=== PATIENT | female | born 1975 ===

== ENCOUNTER 2018-10-12 18:10 | Observation (INO) | payer BC ==
[2018-10-12 18:11] VITALS: BMI 41.3
[2018-10-12] MEDS ORDERED: Albuterol-Ipratrop 3 mg / 0.5 (3 ml) UD INH STA ×2 (19:45→21:04)
--- NOTE | 2018-10-12 19:51 | C.PDOC ---
History Of Present Illness 43 y/o female, with history of hypertension, diabetes, hyperlipidemia, and asthma, comes in for SOB and palpitations for the past few days. She describes the pain as sharp pain. Denies fever. Patient is due for outpatient stress test in a couple of weeks. Time Seen by Provider: 10/12/18 19:38 Chief Complaint (Nursing): Palpitations History Per: Patient History/Exam Limitations: no limitations Onset/Duration Of Symptoms: Days Current Symptoms Are (Timing): Still Present Past Medical History Reviewed: Historical Data, Nursing Documentation, Vital Signs Vital Signs: Last Vital Signs Temp 98.6 F 10/12/18 18:26 Pulse 96 H 10/12/18 18:26 Resp 20 10/12/18 18:26 BP 106/76 10/12/18 18:26 Pulse Ox 99 10/12/18 18:26 Primary Care Provider: FAMILY PROVIDER,NO - Medical History PMH: Anemia, Anxiety, Arthritis, Asthma, Bronchitis, Depression, Diabetes, HTN, Hypercholesterolemia Denies: Alzheimer's Disease, Atrial Fibrillation, Cardia Arrhythmia, CHF, Hepatitis, HIV, Migraine, Mitral Valve Prolapse, Multiple Sclerosis, Parkinson's Disease, Peripheral Edema, Pneumonia Surgical History: Back Surgery (fusion- lumbar), Cholecystectomy (2007), C- Section (x1) Denies: Pacemaker - [facility] Procedures EXCISION OF CERVICAL VERTEBRAL DISC, OPEN APPROACH (09/23/15) FUSION 2-6 C JT W INTBD FUS DEV, POST APPR P COL, OPEN (09/23/15) GAIT TRAINING/AMBULAT TREATMENT USING ASSIST EQUIPMENT (09/23/15) INJECT/INFUSE NEC (08/25/14) PSYCHIAT DRUG THERAP NEC (06/05/14) Family History: States: No Known Family Hx - Social History Hx Tobacco Use: No Hx Alcohol Use: No Hx Substance Use: No - Immunization History Hx Influenza Vaccination: Yes Review Of Systems Except As Marked, All Systems Reviewed And Found Negative. Constitutional: Negative for: Fever, Chills Cardiovascular: Positive for: Palpitations. Negative for: Chest Pain Respiratory: Positive for: Shortness of Breath. Negative for: Cough Neurological: Negative for: Weakness, Numbness Physical Exam - Physical Exam Appears: Non-toxic, No Acute Distress Skin: Warm, Dry Head: Normacephalic Eye(s): bilateral: Normal Inspection Oral Mucosa: Moist Neck: Normal ROM, Supple Chest: Symmetrical, No Tenderness Cardiovascular: Rhythm Regular, No Murmur Respiratory: No Rales, No Rhonchi, Wheezing (scattered wheeezing) Gastrointestinal/Abdominal: Soft, No Tenderness Extremity: Bilateral: Atraumatic, Normal Color And Temperature Neurological/Psych: Oriented x3, Normal Speech ED Course And Treatment - Laboratory Results Result Diagrams: 10/12/18 19:59 10/12/18 19:59 ECG: Interpreted By Me, Viewed By Me ECG Rhythm: Sinus Rhythm, PVC Rate From EC O2 Sat by Pulse Oximetry: 99 (RA) Pulse Ox Interpretation: Normal Medical Decision Making Medical Decision Making: cp ro acs, asthma PERC negative Plan: --EKG --Labs --UA --Duoneb labs neg. wheezing improving will obs to ro acs. dr frederick accepts Disposition - Disposition Disposition: HOSPITALIZED Disposition Time: 22:13 Condition: STABLE - Clinical Impression Clinical Impression: Palpitations, Asthma exacerbation, Chest pain - Scribe Statement The provider has reviewed the documentation as recorded by the Fam Padilla Provider Attestation: All medical record entries made by the Taniaibrocio were at my direction and personally dictated by me. I have reviewed the chart and agree that the record accurately reflects my personal performance of the history, physical exam, medical decision making, and the department course for this patient. I have also personally directed, reviewed, and agree with the discharge instructions and disposition. Decision To Admit - Pt Status Changed To: Hospital Disposition Of: Observation - . Bed Request Type: Telemetry Admitting Physician: Rasheeda Frederick Patient Diagnosis: Palpitations, Asthma exacerbation, Chest pain
[2018-10-12] MEDS ORDERED: Albuterol-Ipratrop 3 mg / 0.5 (3 ml) UD ONE ×2 (20:02→21:15)
[2018-10-12 20:11] LABS: BASO # 0.1 K/uL (0.0-0.2); BASO % 0.6 % (0.0-2.0); EOS # 0.1 K/uL (0.0-0.7); HEMOGLOBIN 13.5 g/dL (11.0-16.0); LYMPH # 2.3 K/uL (1.0-4.3); LYMPH % 21.6 % (20.0-40.0); MEAN CELL VOLUME 84.5 fL (81.0-99.0); MEAN CORPUSCULAR HEMOGLOBIN 28.7 pg (27.0-31.0); MEAN PLATELET VOLUME 8.1 fL (7.2-11.7); MONO # 0.9 K/uL (0.0-0.8); MONO % 8.7 % (0.0-10.0); NEUT # 7.3 K/uL (1.8-7.0); NEUT % 68.1 % (50.0-75.0); RBC 4.7 Mil/uL (3.80-5.20); RED CELL DISTRIBUTION WIDTH 14.3 % (11.5-14.5); WHITE BLOOD COUNT 10.7 K/uL (4.8-10.8)
[2018-10-12 20:19] LABS: INR 1.1; PROTHROMBIN TIME 11.5 SECONDS (9.7-12.2)
[2018-10-12 20:22] LABS: HCG,QUALITATIVE URINE NEGATIVE (NEGATIVE)
[2018-10-12 20:23] LABS: ALB/GLOB RATIO 1.1 (1.0-2.1); ALBUMIN 3.9 g/dL (3.5-5.0); ALT/SGPT 21 U/L (9-52); AST/SGOT 17 U/L (14-36); BLOOD UREA NITROGEN 13 mg/dL (7-17); CALCIUM 9.2 mg/dl (8.6-10.4); GFR NON-AFRICAN AMERICAN > 60
[2018-10-12 20:29] LABS: SQUAMOUS EPITHIAL 3 /hpf (0-5); URINE BACTERIA OCC (<OCC); URINE BILIRUBIN NEGATIVE (NEGATIVE); URINE BLOOD 1+ (NEGATIVE); URINE CLARITY Hazy (Clear); URINE COLOR Yellow (YELLOW); URINE GLUCOSE (UA) NORMAL (Normal); URINE LEUKOCYTE ESTERASE TRACE Leu/uL (Negative); URINE PROTEIN NEGATIVE (NEGATIVE)
[2018-10-12 20:31] LABS: B-TYPE NATRIURETIC PEPTIDE 79.7 pg/mL (0-450)
[2018-10-12] MEDS ORDERED: Enoxaparin 40 mg Syringe SC ONE (23:51)
[2018-10-13] MEDS: MethylPREDNISolone 40 mg Vial IV SCH ×4 (00:32→23:58)
[2018-10-13 06:26] VITALS: RESP 20
[2018-10-13 07:14] LABS: CK-MB < 0.22 ng/mL (0.0-3.38)
--- NOTE | 2018-10-13 08:08 | RAD ---
Chest x-ray single frontal view HISTORY: Chest pain. Comparison: None available. FINDINGS: No focal infiltrate or effusion. Heart size within normal limits. Impression: No focal infiltrate or effusion.
[2018-10-13] MEDS: Enoxaparin 40 mg Syringe SC SCH (09:20)
[2018-10-13] MEDS: Pantoprazole 40 mg EC Tab PO SCH (09:20)
[2018-10-13] MEDS: Azithromycin 500 MG in Sodium Chloride 0.9% 250 ML IVPB SCH (09:29)
--- NOTE | 2018-10-13 11:04 | CP.PCM.CON ---
History of Present Illness - History of Present Illness History of Present Illness: CHART REVIEWED. PT SEEN AND EXAMINED, COVERING DR Quincy MENDOZA 43 YO FEMALE WITH A HX ASTHMA, HTN, DM, OBESITY, DEPRESSION, ADM WITH INCREASED MOD SOB WITH MIN EXERTION X FEW WKS, NO COUGH. NO RELIEF WITH INHALERS, RECENT PRED TAPER. NO PREVIOUS ADM FOR ASTHMA. NO FEVER. ++PALPITATIONS X FEW DAYS AND ANT CP. Review of Systems - Review of Systems All systems: reviewed and no additional remarkable complaints except - Constitutional Constitutional: absent: Chills, Daytime Sleepiness, Fever - EENT Eyes: absent: Change in Vision Ears: absent: Decreased Hearing Nose/Mouth/Throat: absent: Post Nasal Drip - Cardiovascular Cardiovascular: Chest Pain, Palpitations - Respiratory Respiratory: Dyspnea, Dyspnea on Exertion. absent: Cough, Excessive Mucous Production - Gastrointestinal Gastrointestinal: absent: Nausea, Vomiting - Genitourinary Genitourinary: absent: Difficulty Urinating - Musculoskeletal Musculoskeletal: Back Pain - Integumentary Integumentary: absent: Rash, Swelling - Neurological Neurological: absent: Confusion, Focal Weakness - Psychiatric Psychiatric: Depression - Endocrine Endocrine: absent: Change in Body Appearance - Hematologic/Lymphatic Hematologic: absent: Lymphadenopathy Past Patient History - Infectious Disease Hx of Infectious Diseases: None - Past Medical History & Family History Past Medical History?: Yes Pertinent Family History: +ASTHMA - Past Social History Smoking Status: Never Smoked Alcohol: None Drugs: Denies - CARDIAC Hx Atrial Fibrillation: No Hx Cardia Arrhythmia: No Hx Congestive Heart Failure: No Hx Hypercholesterolemia: Yes Hx Hypertension: Yes Hx Mitral Valve Prolapse: No Hx Pacemaker: No Hx Peripheral Edema: No - PULMONARY Hx Asthma: Yes Hx Bronchitis: Yes Hx Pneumonia: No Hx Sleep Apnea: No - NEUROLOGICAL Hx Alzheimer's Disease: No Hx Migraine: No Hx Multiple Sclerosis: No Hx Parkinson's Disease: No - HEENT Hx HEENT Problems: No - RENAL Hx Chronic Kidney Disease: No - ENDOCRINE/METABOLIC Hx Endocrine Disorders: Yes (DM) Hx Diabetes Mellitus Type 2: Yes - HEMATOLOGICAL/ONCOLOGICAL Hx Anemia: Yes Hx Human Immunodeficiency Virus (HIV): No - INTEGUMENTARY Hx Dermatological Problems: No - MUSCULOSKELETAL/RHEUMATOLOGICAL Hx Arthritis: Yes Hx Back Pain: Yes - GASTROINTESTINAL Hx Gastrointestinal Disorders: No - GENITOURINARY/GYNECOLOGICAL Hx Genitourinary Disorders: No - PSYCHIATRIC Hx Anxiety: Yes Hx Depression: Yes Hx Substance Use: No - SURGICAL HISTORY Hx Surgeries: Yes Hx Cholecystectomy: Yes (2007) - ANESTHESIA Hx Anesthesia: Yes Hx Anesthesia Reactions: No Hx Malignant Hyperthermia: No Meds Allergies/Adverse Reactions: Allergies Allergy/AdvReac Type Severity Reaction Status Date / Time seasonal Allergy NAUSEA Uncoded 08/14/18 20:47 - Medications Medications: Current Medications Albuterol/Ipratropium (Duoneb 3 Mg/0.5 Mg (3 Ml) Ud) 3 ml INH RQ6 PRN PRN Reason: Shortness of Breath Aspirin (Aspirin Chewable) 81 mg PO DAILY [facility] Last Admin: 10/13/18 09:20 Dose: 81 mg Enoxaparin Sodium (Lovenox) 40 mg SC DAILY [facility] Last Admin: 10/13/18 09:20 Dose: 40 mg Azithromycin 500 mg/ Sodium (Chloride) 250 mls @ 250 mls/hr IVPB DAILY [facility]; Protocol Last Admin: 10/13/18 09:29 Dose: 250 mls/hr Metformin HCl (Glucophage) 500 mg PO ACTID [facility] Last Admin: 10/13/18 08:30 Dose: 500 mg Methylprednisolone (Solu-Medrol) 40 mg IV Q8H [facility] Last Admin: 10/13/18 09:00 Dose: 40 mg Pantoprazole Sodium (Protonix Ec Tab) 40 mg PO DAILY [facility] Last Admin: 10/13/18 09:20 Dose: 40 mg Physical Exam - Constitutional Appears: No Acute Distress - Head Exam Head Exam: ATRAUMATIC, NORMOCEPHALIC - Eye Exam Eye Exam: EOMI, Normal appearance - ENT Exam ENT Exam: Mucous Membranes Moist - Neck Exam Neck exam: Positive for: Normal Inspection - Respiratory Exam Respiratory Exam: Decreased Breath Sounds, Prolonged Expiratory Phase. absent: Accessory Muscle Use, Wheezes - Cardiovascular Exam Cardiovascular Exam: RRR, +S1, +S2 - GI/Abdominal Exam GI & Abdominal Exam: Soft. absent: Tenderness Additional comments: OBESE - Rectal Exam Rectal Exam: Deferred - Extremities Exam Extremities exam: Negative for: calf tenderness, pedal edema - Back Exam Back exam: absent: CVA tenderness (L), CVA tenderness (R) - Neurological Exam Neurological exam: Alert, CN II-XII Intact, Oriented x3 - Psychiatric Exam Psychiatric exam: Normal Mood Results - Vital Signs Recent Vital Signs: Last Vital Signs Temp 97.8 F 10/13/18 07:00 Pulse 78 10/13/18 07:07 Resp 20 10/13/18 07:00 BP 107/72 10/13/18 07:00 Pulse Ox 97 10/13/18 07:00 - Labs Result Diagrams: 10/14/18 08:52 10/14/18 08:52 Labs: Laboratory Results - last 24 hr 10/12/18 10/12/18 10/12/18 19:59 19:59 19:59 WBC 10.7 RBC 4.70 Hgb 13.5 D Hct 39.7 MCV 84.5 D MCH 28.7 MCHC 34.0 RDW 14.3 Plt Count 306 MPV 8.1 Neut % (Auto) 68.1 Lymph % (Auto) 21.6 [place] % (Auto) 8.7 Eos % (Auto) 1.0 Baso % (Auto) 0.6 Neut # (Auto) 7.3 H Lymph # (Auto) 2.3 [place] # (Auto) 0.9 H Eos # (Auto) 0.1 Baso # (Auto) 0.1 PT 11.5 INR 1.1 APTT 35.0 H Sodium 137 Potassium 3.8 Chloride 102 Carbon Dioxide 25 Anion Gap 14 BUN 13 Creatinine 0.7 Est GFR ( Amer) > 60 Est GFR (Non-Af Amer) > 60 POC Glucose (mg/dL) Random Glucose 118 H D Calcium 9.2 Total Bilirubin 0.3 AST 17 ALT 21 Alkaline Phosphatase 99 Total Creatine Kinase CK-MB (Mass) Troponin I < 0.0120 NT-Pro-B Natriuret Pep 79.7 Total Protein 7.5 Albumin 3.9 Globulin 3.6 Albumin/Globulin Ratio 1.1 Urine Color Urine Clarity Urine pH Ur Specific [place] Urine Protein Urine Glucose (UA) Urine Ketones Urine Blood Urine Nitrate Urine Bilirubin Urine Urobilinogen Ur Leukocyte Esterase Urine WBC (Auto) Urine RBC (Auto) Ur Squamous Epith Cells Urine Bacteria Urine HCG, Qual 10/12/18 10/13/18 10/13/18 20:13 06:34 06:38 WBC RBC Hgb Hct MCV MCH MCHC RDW Plt Count MPV Neut % (Auto) Lymph % (Auto) [place] % (Auto) Eos % (Auto) Baso % (Auto) Neut # (Auto) Lymph # (Auto) [place] # (Auto) Eos # (Auto) Baso # (Auto) PT INR APTT Sodium Potassium Chloride Carbon Dioxide Anion Gap BUN Creatinine Est GFR ( Amer) Est GFR (Non-Af Amer) POC Glucose (mg/dL) 248 H Random Glucose Calcium Total Bilirubin AST ALT Alkaline Phosphatase Total Creatine Kinase 29 L CK-MB (Mass) < 0.22 Troponin I < 0.0120 NT-Pro-B Natriuret Pep Total Protein Albumin Globulin Albumin/Globulin Ratio Urine Color Yellow Urine Clarity Hazy Urine pH 5.0 Ur Specific [place] 1.021 Urine Protein Negative Urine Glucose (UA) Normal Urine Ketones Negative Urine Blood 1+ H Urine Nitrate Negative Urine Bilirubin Negative Urine Urobilinogen 4.0 H Ur Leukocyte Esterase Trace Urine WBC (Auto) 2 Urine RBC (Auto) 11 H Ur Squamous Epith Cells 3 Urine Bacteria Occ H Urine HCG, Qual Negative Assessment & Plan (1) Obesity Status: Acute (2) Asthma exacerbation Status: Acute (3) Atypical chest pain Status: Acute (4) Depression Status: Acute (5) Diabetes Status: Acute (6) Dyslipidemia Status: Acute (7) HTN (hypertension) Status: Acute - Assessment and Plan (Free Text) Assessment: 43 YO FEMALE WITH A HX MULT MED PROBS ADM WITH DYSPNEA AND CP R/O ACS., EXAC ASTHMA. CONT IV STEROIDS, TAPER TOLERATED. CONT NEB BD., SYMBICORT. MONITOR O2 SAT., ON ROOM AIR NOW. CXR REVIEWED. GI/DVT PROPHYLAXIS. FOR CARDIO EVAL. DISCUSSED WITH STAFF AT LENGTH. TIME SPENT 1HR.
--- NOTE | 2018-10-13 12:05 | CP.PCM.CON ---
History of Present Illness - History of Present Illness History of Present Illness: 43 y/o female, with history of hypertension, diabetes, hyperlipidemia, and asthma, comes in for SOB and palpitations for the past few days. She describes the pain as sharp pain. Denies fever. Patient is due for outpatient stress test in a couple of weeks. chronic problems: HTN stable DM stable LIPIDS not on statin CArdiac history: > > patient had echo in 02/2017 suggesting EF of 35-40%, f/u stress test same admission showed normal perfusion and EF visually noted as normal. Past Patient History - Infectious Disease Hx of Infectious Diseases: None - Past Medical History & Family History Past Medical History?: Yes - Past Social History Smoking Status: Never Smoked Alcohol: None Drugs: Denies - CARDIAC Hx Atrial Fibrillation: No Hx Cardia Arrhythmia: No Hx Congestive Heart Failure: No Hx Hypercholesterolemia: Yes Hx Hypertension: Yes Hx Mitral Valve Prolapse: No Hx Pacemaker: No Hx Peripheral Edema: No - PULMONARY Hx Asthma: Yes Hx Bronchitis: Yes Hx Pneumonia: No Hx Sleep Apnea: No - NEUROLOGICAL Hx Alzheimer's Disease: No Hx Migraine: No Hx Multiple Sclerosis: No Hx Parkinson's Disease: No - HEENT Hx HEENT Problems: No - RENAL Hx Chronic Kidney Disease: No - ENDOCRINE/METABOLIC Hx Endocrine Disorders: Yes (DM) Hx Diabetes Mellitus Type 2: Yes - HEMATOLOGICAL/ONCOLOGICAL Hx Anemia: Yes Hx Human Immunodeficiency Virus (HIV): No - INTEGUMENTARY Hx Dermatological Problems: No - MUSCULOSKELETAL/RHEUMATOLOGICAL Hx Arthritis: Yes Hx Back Pain: Yes - GASTROINTESTINAL Hx Gastrointestinal Disorders: No - GENITOURINARY/GYNECOLOGICAL Hx Genitourinary Disorders: No - PSYCHIATRIC Hx Anxiety: Yes Hx Depression: Yes Hx Substance Use: No - SURGICAL HISTORY Hx Surgeries: Yes Hx Cholecystectomy: Yes (2007) - ANESTHESIA Hx Anesthesia: Yes Hx Anesthesia Reactions: No Hx Malignant Hyperthermia: No Meds Allergies/Adverse Reactions: Allergies Allergy/AdvReac Type Severity Reaction Status Date / Time seasonal Allergy NAUSEA Uncoded 08/14/18 20:47 - Medications Medications: Current Medications Albuterol/Ipratropium (Duoneb 3 Mg/0.5 Mg (3 Ml) Ud) 3 ml INH RQ6 PRN PRN Reason: Shortness of Breath Aspirin (Aspirin Chewable) 81 mg PO DAILY [facility] Last Admin: 10/13/18 09:20 Dose: 81 mg Enoxaparin Sodium (Lovenox) 40 mg SC DAILY [facility]S [facility] Last Admin: 10/13/18 09:20 Dose: 40 mg Azithromycin 500 mg/ Sodium (Chloride) 250 mls @ 250 mls/hr IVPB DAILY [facility]S [facility]; Protocol Last Admin: 10/13/18 09:29 Dose: 250 mls/hr Metformin HCl (Glucophage) 500 mg PO ACTID [facility] 234 B[facility]S AT [facility] Last Admin: 10/13/18 08:30 Dose: 500 mg Methylprednisolone (Solu-Medrol) 40 mg IV Q8H [facility] 234 B[facility]S AT [facility] Last Admin: 10/13/18 09:00 Dose: 40 mg Pantoprazole Sodium (Protonix Ec Tab) 40 mg PO DAILY [facility] 234 [facility]S [facility] Last Admin: 10/13/18 09:20 Dose: 40 mg Physical Exam - Constitutional Appears: No Acute Distress - Head Exam Head Exam: ATRAUMATIC, NORMAL INSPECTION, NORMOCEPHALIC - Eye Exam Eye Exam: EOMI, Normal appearance - ENT Exam ENT Exam: Mucous Membranes Moist, Normal Oropharynx - Neck Exam Neck exam: Positive for: Normal Inspection - Respiratory Exam Respiratory Exam: Clear to Auscultation Bilateral, NORMAL BREATHING PATTERN - Cardiovascular Exam Cardiovascular Exam: REGULAR RHYTHM, +S1, +S2 - GI/Abdominal Exam GI & Abdominal Exam: Normal Bowel Sounds, Soft - Extremities Exam Extremities exam: Positive for: normal inspection - Back Exam Back exam: NORMAL INSPECTION - Neurological Exam Neurological exam: Alert, CN II-XII Intact, Oriented x3 - Psychiatric Exam Psychiatric exam: Normal Affect, Normal Mood - Skin Skin Exam: Normal Color, Warm Results - Vital Signs Recent Vital Signs: Last Vital Signs Temp 97.8 F 10/13/18 07:00 Pulse 78 10/13/18 07:07 Resp 20 10/13/18 07:00 BP 107/72 10/13/18 07:00 Pulse Ox 97 10/13/18 07:00 - Labs Result Diagrams: 10/15/18 11:15 10/15/18 11:15 Labs: Laboratory Results - last 24 hr 10/12/18 10/12/18 10/12/18 19:59 19:59 19:59 WBC 10.7 RBC 4.70 Hgb 13.5 D Hct 39.7 MCV 84.5 D MCH 28.7 MCHC 34.0 RDW 14.3 Plt Count 306 MPV 8.1 Neut % (Auto) 68.1 Lymph % (Auto) 21.6 [place] % (Auto) 8.7 Eos % (Auto) 1.0 Baso % (Auto) 0.6 Neut # (Auto) 7.3 H Lymph # (Auto) 2.3 [place] # (Auto) 0.9 H Eos # (Auto) 0.1 Baso # (Auto) 0.1 PT 11.5 INR 1.1 APTT 35.0 H Sodium 137 Potassium 3.8 Chloride 102 Carbon Dioxide 25 Anion Gap 14 BUN 13 Creatinine 0.7 Est GFR ( Amer) > 60 Est GFR (Non-Af Amer) > 60 POC Glucose (mg/dL) Random Glucose 118 H D Calcium 9.2 Total Bilirubin 0.3 AST 17 ALT 21 Alkaline Phosphatase 99 Total Creatine Kinase CK-MB (Mass) Troponin I < 0.0120 NT-Pro-B Natriuret Pep 79.7 Total Protein 7.5 Albumin 3.9 Globulin 3.6 Albumin/Globulin Ratio 1.1 Urine Color Urine Clarity Urine pH Ur Specific [place] Urine Protein Urine Glucose (UA) Urine Ketones Urine Blood Urine Nitrate Urine Bilirubin Urine Urobilinogen Ur Leukocyte Esterase Urine WBC (Auto) Urine RBC (Auto) Ur Squamous Epith Cells Urine Bacteria Urine HCG, Qual 10/12/18 10/13/18 10/13/18 20:13 06:34 06:38 WBC RBC Hgb Hct MCV MCH MCHC RDW Plt Count MPV Neut % (Auto) Lymph % (Auto) [place] % (Auto) Eos % (Auto) Baso % (Auto) Neut # (Auto) Lymph # (Auto) [place] # (Auto) Eos # (Auto) Baso # (Auto) PT INR APTT Sodium Potassium Chloride Carbon Dioxide Anion Gap BUN Creatinine Est GFR ( Amer) Est GFR (Non-Af Amer) POC Glucose (mg/dL) 248 H Random Glucose Calcium Total Bilirubin AST ALT Alkaline Phosphatase Total Creatine Kinase 29 L CK-MB (Mass) < 0.22 Troponin I < 0.0120 NT-Pro-B Natriuret Pep Total Protein Albumin Globulin Albumin/Globulin Ratio Urine Color Yellow Urine Clarity Hazy Urine pH 5.0 Ur Specific [place] 1.021 Urine Protein Negative Urine Glucose (UA) Normal Urine Ketones Negative Urine Blood 1+ H Urine Nitrate Negative Urine Bilirubin Negative Urine Urobilinogen 4.0 H Ur Leukocyte Esterase Trace Urine WBC (Auto) 2 Urine RBC (Auto) 11 H Ur Squamous Epith Cells 3 Urine Bacteria Occ H Urine HCG, Qual Negative 10/13/18 11:04 WBC RBC Hgb Hct MCV MCH MCHC RDW Plt Count MPV Neut % (Auto) Lymph % (Auto) [place] % (Auto) Eos % (Auto) Baso % (Auto) Neut # (Auto) Lymph # (Auto) [place] # (Auto) Eos # (Auto) Baso # (Auto) PT INR APTT Sodium Potassium Chloride Carbon Dioxide Anion Gap BUN Creatinine Est GFR ( Amer) Est GFR (Non-Af Amer) POC Glucose (mg/dL) 185 H Random Glucose Calcium Total Bilirubin AST ALT Alkaline Phosphatase Total Creatine Kinase CK-MB (Mass) Troponin I NT-Pro-B Natriuret Pep Total Protein Albumin Globulin Albumin/Globulin Ratio Urine Color Urine Clarity Urine pH Ur Specific [place] Urine Protein Urine Glucose (UA) Urine Ketones Urine Blood Urine Nitrate Urine Bilirubin Urine Urobilinogen Ur Leukocyte Esterase Urine WBC (Auto) Urine RBC (Auto) Ur Squamous Epith Cells Urine Bacteria Urine HCG, Qual - EKG Data EKG Interpreted by: Myself (NSR, isolated PVCs) EKG shows normal: Sinus rhythm - Imaging and Cardiology Chest x-ray Status: Image reviewed by me (No infiltrate) Assessment & Plan - Assessment and Plan (Free Text) Assessment: 43 y/o with acute asthma non cardiac CP now resolved No high risk findings on EKG , [place] ruled out Patient has a financial auditor in [place]: I have asked her to f/u with him to re- eval sx;s and consider repeat echo and possible event recorder. Majority of sxs of palpitation appear to be due to physical deconditioning. advise weight loss, exercise and cont Rx for asthma BP is olga; ..monitor for now f/u lipids as outpatient and consider statin if LDL >130 ok to d/c from cardiac...when pulm sxs improved and stable...f/u with her financial auditor as outpatient.
[2018-10-13 12:44] LABS: CK-MB < 0.22 ng/mL (0.0-3.38)
[2018-10-13] MEDS: Albuterol-Ipratrop 3 mg / 0.5 (3 ml) UD INH PRN ×2 (14:32→20:03)
[2018-10-13 20:18] LABS: CK-MB < 0.22 ng/mL (0.0-3.38)
[2018-10-14] MEDS: MethylPREDNISolone 40 mg Vial IV SCH ×2 (09:00→14:12)
[2018-10-14 09:04] LABS: BASO % 0.1 % (0.0-2.0); HEMOGLOBIN 13.1 g/dL (11.0-16.0); LYMPH # 0.9 K/uL (1.0-4.3); LYMPH % 5.7 % (20.0-40.0); MEAN CELL VOLUME 85.9 fL (81.0-99.0); MEAN CORPUSCULAR HEMOGLOBIN 29.2 pg (27.0-31.0); MEAN PLATELET VOLUME 8.1 fL (7.2-11.7); MONO # 0.6 K/uL (0.0-0.8); MONO % 3.6 % (0.0-10.0); NEUT # 13.9 K/uL (1.8-7.0); NEUT % 90.6 % (50.0-75.0); PLATELET COUNT 332 K/uL (130-400); RBC 4.49 Mil/uL (3.80-5.20); RED CELL DISTRIBUTION WIDTH 14.8 % (11.5-14.5); WHITE BLOOD COUNT 15.4 K/uL (4.8-10.8)
[2018-10-14] MEDS: Pantoprazole 40 mg EC Tab PO SCH (09:09)
[2018-10-14] MEDS: Enoxaparin 40 mg Syringe SC SCH (09:10)
[2018-10-14 09:50] LABS: ALB/GLOB RATIO 1.1 (1.0-2.1); ALT/SGPT 14 U/L (9-52); AST/SGOT 16 U/L (14-36); BLOOD UREA NITROGEN 13 mg/dL (7-17); CALCIUM 9.3 mg/dl (8.6-10.4); GFR NON-AFRICAN AMERICAN > 60
[2018-10-14] MEDS: Azithromycin 500 MG in Sodium Chloride 0.9% 250 ML IVPB SCH (10:01)
[2018-10-14 11:27] LABS: LYMPHOCYTE 7 % (20-40); MONOCYTE 2 % (0-10); NEUTROPHIL 91 % (50-75); PLATELET ESTIMATE NORMAL (NORMAL); TOTAL CELLS COUNTED 100
--- NOTE | 2018-10-14 13:21 | CP.PCM.PN ---
Subjective - Date & Time of Evaluation Date of Evaluation: 10/14/18 Time of Evaluation: 13:18 - Subjective Subjective: PT ALERT, FEELS BETTER. SOB LAST PM WITH ANXIETY, BETTER WITH ZOLOFT. NO COUGH. AMBULATING . ROS; OTHERWISE NEG. Objective - Vital Signs/Intake and Output Vital Signs (last 24 hours): Temp Pulse Resp BP Pulse Ox 97.9 F 91 H 20 108/66 95 10/14/18 07:52 10/14/18 11:59 10/14/18 07:52 10/14/18 07:52 10/14/18 07:52 Intake and Output: 10/14/18 10/14/18 06:59 18:59 Intake Total 500 Balance 500 - Medications Medications: Current Medications Albuterol/Ipratropium (Duoneb 3 Mg/0.5 Mg (3 Ml) Ud) 3 ml INH RQ6 PRN PRN Reason: Shortness of Breath Last Admin: 10/13/18 20:03 Dose: 3 ml Aspirin (Aspirin Chewable) 81 mg PO DAILY [facility] Last Admin: 10/14/18 09:10 Dose: 81 mg Enoxaparin Sodium (Lovenox) 40 mg SC DAILY [facility] Last Admin: 10/14/18 09:10 Dose: 40 mg Azithromycin 500 mg/ Sodium (Chloride) 250 mls @ 250 mls/hr IVPB DAILY [facility]; Protocol Last Admin: 10/14/18 10:01 Dose: 250 mls/hr Metformin HCl (Glucophage) 500 mg PO ACTID [facility] Last Admin: 10/14/18 12:30 Dose: 500 mg Methylprednisolone (Solu-Medrol) 40 mg IV Q8H [facility] Last Admin: 10/14/18 09:00 Dose: 40 mg Pantoprazole Sodium (Protonix Ec Tab) 40 mg PO DAILY [facility] Last Admin: 10/14/18 09:09 Dose: 40 mg - Labs Labs: 10/14/18 08:52 10/14/18 08:52 PT 11.5 SECONDS (9.7-12.2) 10/12/18 19:59 INR 1.1 10/12/18 19:59 APTT 35.0 SECONDS (21-34) H 10/12/18 19:59 - Constitutional Appears: No Acute Distress - Head Exam Head Exam: ATRAUMATIC, NORMOCEPHALIC - Eye Exam Eye Exam: EOMI, Normal appearance - ENT Exam ENT Exam: Mucous Membranes Moist - Neck Exam Neck Exam: Normal Inspection - Respiratory Exam Respiratory Exam: absent: Wheezes, Respiratory Distress - Cardiovascular Exam Cardiovascular Exam: RRR, +S1, +S2 - GI/Abdominal Exam GI & Abdominal Exam: Soft. absent: Tenderness Additional comments: OBESE - Rectal Exam Rectal Exam: Deferred - Extremities Exam Extremities Exam: absent: Calf Tenderness, Pedal Edema - Back Exam Back Exam: absent: CVA tenderness (L), CVA tenderness (R) - Neurological Exam Neurological Exam: Alert, Awake, CN II-XII Intact, Normal Gait, Oriented x3 - Psychiatric Exam Psychiatric exam: Normal Mood - Skin Skin Exam: absent: Rash Assessment and Plan (1) Obesity Status: Acute (2) Asthma exacerbation Status: Acute (3) Atypical chest pain Status: Acute (4) Depression Status: Acute (5) Diabetes Status: Acute (6) Dyslipidemia Status: Acute (7) HTN (hypertension) Status: Acute - Assessment and Plan (Free Text) Assessment: RESP STATUS IMPROVING., CONT NEB BD., SYMBICORT. STEROID TAPER TOLERATED. CXR REVIEWED. CARDIO EVAL NOTED. DISCUSSED WITH STAFF AT LENGTH. TIME SPENT 40 MIN.
[2018-10-15] MEDS: MethylPREDNISolone 40 mg Vial IV SCH ×2 (02:01→12:45)
[2018-10-15 07:43] VITALS: BP 113/76; TEMP 98.1; O2SAT 95
--- NOTE | 2018-10-15 08:30 | CP.PCM.PN ---
Subjective - Date & Time of Evaluation Date of Evaluation: 10/15/18 Time of Evaluation: 08:29 - Subjective Subjective: Medicine Progress Note - Dr Quincy Diaz's service Patient seen and examined at bedside. Per nursing no acute events overnight. Patient is doing well, offers no complaints at this time. She intially came to the hospital for shortness of breath and palpitations. She states that both have since resolved. Denies headaches, dizziness, cp, palpitations, sob, cough, abdominal pain, urinary symptoms. Last bowel movement was 2 days ago. Objective - Vital Signs/Intake and Output Vital Signs (last 24 hours): Temp Pulse Resp BP Pulse Ox 98.1 F 74 20 113/76 95 10/15/18 07:42 10/15/18 07:42 10/15/18 07:42 10/15/18 07:42 10/15/18 07:42 Intake and Output: 10/15/18 10/15/18 06:59 18:59 Intake Total 500 Balance 500 - Medications Medications: Current Medications Albuterol/Ipratropium (Duoneb 3 Mg/0.5 Mg (3 Ml) Ud) 3 ml INH RQ6 PRN PRN Reason: Shortness of Breath Last Admin: 10/13/18 20:03 Dose: 3 ml Aspirin (Aspirin Chewable) 81 mg PO DAILY [facility] Last Admin: 10/14/18 09:10 Dose: 81 mg Enoxaparin Sodium (Lovenox) 40 mg SC DAILY [facility] Last Admin: 10/14/18 09:10 Dose: 40 mg Azithromycin 500 mg/ Sodium (Chloride) 250 mls @ 250 mls/hr IVPB DAILY [facility]; Protocol Last Admin: 10/14/18 10:01 Dose: 250 mls/hr Metformin HCl (Glucophage) 500 mg PO ACTID [facility] Last Admin: 10/14/18 17:13 Dose: 500 mg Methylprednisolone (Solu-Medrol) 30 mg IV Q12H [facility] Last Admin: 10/15/18 02:01 Dose: 30 mg Pantoprazole Sodium (Protonix Ec Tab) 40 mg PO DAILY [facility] Last Admin: 10/14/18 09:09 Dose: 40 mg Sertraline HCl (Zoloft) 100 mg PO HS [facility] Last Admin: 10/14/18 21:42 Dose: 100 mg Sertraline HCl (Zoloft) 25 mg PO HS [facility] Last Admin: 10/14/18 21:42 Dose: 25 mg - Labs Labs: 10/14/18 08:52 10/14/18 08:52 PT 11.5 SECONDS (9.7-12.2) 10/12/18 19:59 INR 1.1 10/12/18 19:59 APTT 35.0 SECONDS (21-34) H 10/12/18 19:59 - Constitutional Appears: Non-toxic, No Acute Distress - Head Exam Head Exam: ATRAUMATIC, NORMAL INSPECTION - Eye Exam Eye Exam: EOMI, Normal appearance - ENT Exam ENT Exam: Mucous Membranes Moist - Neck Exam Neck Exam: Full ROM - Respiratory Exam Respiratory Exam: Clear to Ausculation Bilateral, NORMAL BREATHING PATTERN. absent: Rales, Rhonchi, Wheezes - Cardiovascular Exam Cardiovascular Exam: REGULAR RHYTHM, +S1, +S2 - GI/Abdominal Exam GI & Abdominal Exam: Soft. absent: Guarding, Rigid, Tenderness - Extremities Exam Extremities Exam: Normal Inspection. absent: Calf Tenderness - Neurological Exam Neurological Exam: Alert, Awake, Oriented x3 - Psychiatric Exam Psychiatric exam: Normal Affect, Normal Mood - Skin Skin Exam: Dry, Normal Color, Warm Assessment and Plan - Assessment and Plan (Free Text) Assessment: Acute asthma exacerbation -Stable, afebrile -Patient is oxygenating well -On Solumedrol 30md Q12H -> we will change to PO prednisone -Duonebs Q6H prn shortness of breath -Pulmonology on consult, Dr Santos, help appreciated Leukocytosis -WBC 15.4 yesterday, likely 2/2 to steroids -F/U repeat CBC today to monitor Depression -Zoloft 125mg PO daily Diabetes Mellitus -On Metformin 500mg PO TID -Accuchecks 190-200s -Continue to monitor as patient is on steroids GI/DVT ppx: Protonix 40mg PO daily Lovenox 40mg SC daily DISPO: Leukocytosis downtrending. Patient to be discharged home with prednisone and zpak. 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 Patient to also follow up with her PMD outpatient. Plan discussed with Dr Quincy Maddox DO PGY-2
[2018-10-15] MEDS: Azithromycin 500 MG in Sodium Chloride 0.9% 250 ML IVPB SCH (09:12)
[2018-10-15] MEDS: Enoxaparin 40 mg Syringe SC SCH (09:12)
--- NOTE | 2018-10-15 09:17 | CP.PCM.PN ---
Subjective - Date & Time of Evaluation Date of Evaluation: 10/15/18 Time of Evaluation: 09:14 - Subjective Subjective: PT ALERT, OOB, FEELS BETTER., NO SOB LAST NIGHT. ROS ; OTHERWISE NEG. Objective - Vital Signs/Intake and Output Vital Signs (last 24 hours): Temp Pulse Resp BP Pulse Ox 98.1 F 74 20 113/76 95 10/15/18 07:42 10/15/18 07:42 10/15/18 07:42 10/15/18 07:42 10/15/18 07:42 Intake and Output: 10/15/18 10/15/18 06:59 18:59 Intake Total 500 Balance 500 - Medications Medications: Current Medications Albuterol/Ipratropium (Duoneb 3 Mg/0.5 Mg (3 Ml) Ud) 3 ml INH RQ6 PRN PRN Reason: Shortness of Breath Last Admin: 10/13/18 20:03 Dose: 3 ml Aspirin (Aspirin Chewable) 81 mg PO DAILY [facility] [place] Last Admin: 10/14/18 09:10 Dose: 81 mg Enoxaparin Sodium (Lovenox) 40 mg SC DAILY [facility] [place] Last Admin: 10/15/18 09:12 Dose: Not Given Azithromycin 500 mg/ Sodium (Chloride) 250 mls @ 250 mls/hr IVPB DAILY [facility] [place]; Protocol Last Admin: 10/15/18 09:12 Dose: 250 mls/hr Metformin HCl (Glucophage) 500 mg PO ACTID [facility] [place] Last Admin: 10/15/18 08:30 Dose: 500 mg Methylprednisolone (Solu-Medrol) 30 mg IV Q12H [facility] Last Admin: 10/15/18 02:01 Dose: 30 mg Pantoprazole Sodium (Protonix Ec Tab) 40 mg PO DAILY [facility] Last Admin: 10/14/18 09:09 Dose: 40 mg Sertraline HCl (Zoloft) 100 mg PO HS [facility] Last Admin: 10/14/18 21:42 Dose: 100 mg Sertraline HCl (Zoloft) 25 mg PO HS [facility] [place] Last Admin: 10/14/18 21:42 Dose: 25 mg - Labs Labs: 10/14/18 08:52 10/14/18 08:52 PT 11.5 SECONDS (9.7-12.2) 10/12/18 19:59 INR 1.1 10/12/18 19:59 APTT 35.0 SECONDS (21-34) H 10/12/18 19:59 - Constitutional Appears: No Acute Distress - Head Exam Head Exam: ATRAUMATIC, NORMOCEPHALIC - Eye Exam Eye Exam: EOMI, Normal appearance - ENT Exam ENT Exam: Mucous Membranes Moist - Neck Exam Neck Exam: Normal Inspection - Respiratory Exam Respiratory Exam: absent: Wheezes, Respiratory Distress - Cardiovascular Exam Cardiovascular Exam: RRR, +S1, +S2 - GI/Abdominal Exam GI & Abdominal Exam: Soft. absent: Tenderness Additional comments: OBESE - Rectal Exam Rectal Exam: Deferred - Extremities Exam Extremities Exam: absent: Calf Tenderness, Pedal Edema - Back Exam Back Exam: absent: CVA tenderness (L), CVA tenderness (R) - Neurological Exam Neurological Exam: Alert, Awake, CN II-XII Intact, Normal Gait, Oriented x3 - Psychiatric Exam Psychiatric exam: Normal Mood - Skin Skin Exam: absent: Rash Assessment and Plan (1) Obesity Status: Acute (2) Asthma exacerbation Status: Acute (3) Atypical chest pain Status: Acute (4) Depression Status: Acute (5) Diabetes Status: Acute (6) Dyslipidemia Status: Acute (7) HTN (hypertension) Status: Acute - Assessment and Plan (Free Text) Assessment: RESP STATUS IMPROVING., TOLERATING STEROID TAPER, CHANGE PO PRED. CONT SYMBICORT, PRN NEB BD., CXR REVIEWED. ADEQ OXYGENATION. DISCUSSED WITH STAFF AT LENGTH. TIME SPENT 40 MIN.
[2018-10-15] MEDS: Pantoprazole 40 mg EC Tab PO SCH (09:18)
[2018-10-15 11:31] LABS: BASO % 0.1 % (0.0-2.0); HEMOGLOBIN 13.3 g/dL (11.0-16.0); LYMPH # 1.3 K/uL (1.0-4.3); LYMPH % 9.9 % (20.0-40.0); MEAN CELL VOLUME 85.2 fL (81.0-99.0); MEAN CORPUSCULAR HEMOGLOBIN 29.1 pg (27.0-31.0); MEAN CORPUSCULAR HGB CONC 34.1 g/dL (33.0-37.0); MEAN PLATELET VOLUME 8.1 fL (7.2-11.7); MONO # 0.5 K/uL (0.0-0.8); MONO % 3.4 % (0.0-10.0); NEUT # 11.8 K/uL (1.8-7.0); NEUT % 86.6 % (50.0-75.0); PLATELET COUNT 349 K/uL (130-400); RBC 4.56 Mil/uL (3.80-5.20); RED CELL DISTRIBUTION WIDTH 14.1 % (11.5-14.5); WHITE BLOOD COUNT 13.6 K/uL (4.8-10.8)
[2018-10-15 11:49] LABS: ALB/GLOB RATIO 1.4 (1.0-2.1); ALBUMIN 4.1 g/dL (3.5-5.0); ALT/SGPT 11 U/L (9-52); AST/SGOT 15 U/L (14-36); BLOOD UREA NITROGEN 18 mg/dL (7-17); CALCIUM 9.3 mg/dl (8.6-10.4); GFR NON-AFRICAN AMERICAN > 60
[2018-10-15 12:09] LABS: BANDS 2 % (0-2); LYMPHOCYTE 5 % (20-40); MONOCYTE 5 % (0-10); NEUTROPHIL 88 % (50-75); PLATELET ESTIMATE NORMAL (NORMAL); TOTAL CELLS COUNTED 100
[2018-10-15 12:29] VITALS: PULSE 71
--- NOTE | 2018-10-17 22:26 | CARD ---
APPROVED REPORT Date of service: 10/12/2018 EKG Measurement Heart [id number] <Conclusion> Sinus rhythm with occasional premature ventricular complexes Otherwise normal ECG
== END 2018-10-15 13:51 | disposition home or self-care (01) ==
LOC: C.ER 18:10 → C.9E 21:04 → C.5S 22:14
PROVIDERS: ADMIT Internal Medicine Nephrology; ATTEND Internal Medicine Nephrology
DX: J45.901 Unspecified asthma with (acute) exacerbation (principal); Z79.84 Long term (current) use of oral hypoglycemic drugs; E11.9 Type 2 diabetes mellitus without complications; E66.9 Obesity, unspecified; E78.00 Pure hypercholesterolemia, unspecified; E78.5 Hyperlipidemia, unspecified; F32.9 Major depressive disorder, single episode, unspecified; F41.9 Anxiety disorder, unspecified; I10 Essential (primary) hypertension; Z90.49 Acquired absence of other specified parts of digestive tract; D64.9 Anemia, unspecified; J40 Bronchitis, not specified as acute or chronic; M19.90 Unspecified osteoarthritis, unspecified site; M54.9 Dorsalgia, unspecified; R00.2 Palpitations; R63.4 Abnormal weight loss; D72.829 Elevated white blood cell count, unspecified
CPT/HCPCS: 36415; 71045; 80053; 81001; 82948; 83880; 84484; 84703; 85025; 85610; 85730; 94640; 99285; G0378; J0456; J1650; J2920; J7050